=== PATIENT | male | born 1980 | race Caucasian/White ===

== ENCOUNTER 2018-12-08 13:19 | Emergency (ER) | payer MEDICAID ==
[2018-12-08] MEDS: DEXAMETHASONE 4 MG TAB PO (14:10)
[2018-12-08] MEDS: ACETAMINOPHEN 325 MG TAB PO (14:10)
== END 2018-12-08 14:16 | disposition home or self-care (01) ==
LOC: FTE 13:19
DX: J02.9 Acute pharyngitis, unspecified (principal)
CPT/HCPCS: 99283; Z7502